=== PATIENT | male | born 1975 | race Caucasian/White ===

== ENCOUNTER 2016-11-14 18:10 | Observation (INO) | payer BC ==
[~2016-11-14] VITALS: Ht 182.9 cm; Wt 91.5 kg
--- NOTE | ~2016-11-14 | ECHO ---
Transthoracic Echocardiography Report (TTE) Demographics Patient Name JAZ ESPOSITO Date of Study 11/15/2016 Patient Number [id number] Visit Number [id number] Date of 1975 Room Number G6219 Accession Number [id number] Gender Male Age 41 year(s) Referring Yaakov Lozano MD Hand Flesher Itzel Tillman RUST, Physician Marni Osborne MD RVT Physician Interpreting [employer] Digital Marketing Officer Physician Supervising Ordering Physician Marni Osborne MD, MD/MLP Nurse Stress E Commerce Architect Conclusions Contractility Score Summary At rest the following contractility abnormalities were noted: Hypokinesis of the Apical cap segment. Contractility of all other segments appeared normal. Summary Normal LV/RV size and systolic function. The estimated left ventricular ejection fraction is 55-60% Mild concentric left ventricular hypertrophy. Diastolic assessment reveals normal relaxation. No significant valvular abnormalities. No evidence of pericardial effusion. Procedure Type of Study TTE procedure:2D Echocardiogram. Procedure Date Date: 11/15/2016 Start: 12:23 PM Study Location: Inpatient Portable Technical Quality: Adequate visualization Indications:TIA. Additional Indications:stroke Appropriate Use Criteria: 9 Patient Status: Routine Rhythm: Within normal limits HR: 70 bpm BP: 134/89 mmHg M-Mode/2D Measurements LV Diastolic Dimension: 4.63 cm LV Systolic Dimension: 3.44 cm LV Septum Diastolic: 1.09 cm LV PW Diastolic: 1.19 cm AO Root Dimension: 2.5 cm Cardiac Output: 5.35 l/min AV Cusp Separation: 2.1 cm RV Diastolic Dimension: 2.17 cm LA volume: 39 ml IVC Inspiration: 0.8 cm LVOT: 2.3 cm RV Base: 3.67 cm LVOT VTI: 18.4 cm RV Mid: 2.36 cm LV Stroke volume: 76.41 ml TAPSE: 2.28 cm TDI-S': 14 cm/s Doppler Measurements AV Peak Velocity: 1.18 m/s MV Peak E-Wave: 0.94 m/s AV Peak Gradient: 5.57 mmHg MV Peak A-Wave: 0.58 m/s AV Mean Gradient: 4 mmHg MV E/A Ratio: 1.62 LVOT Peak Velocity: 0.85 m/s MV P1/2t: 69 msec TR Gradient:20.43 mmHg PV Peak Velocity: 0.92 m/s Estimated RAP:3 mmHg PV Peak Gradient: 3.36 mmHg Estimated RVSP: 23 mmHg Estimated PASP: 23.43 mmHg E' Septal Velocity: 0.16 m/s A' Septal Velocity: 0.11 m/s E' Lateral Velocity: 0.12 m/s A' Lateral Velocity: 0.08 m/s Findings Left Ventricle The estimated left ventricular ejection fraction is 55% Mild concentric left ventricular hypertrophy. Diastolic assessment reveals normal relaxation. Right Ventricle Grossly normal right ventricle structure and function. Left Atrium Grossly normal left atrial size. Right Atrium Grossly normal right atrial size. IVC imaging is consistent with normal RA pressures. Mitral Valve Trivial mitral regurgitation by color Doppler. Aortic Valve Grossly normal aortic valve structure and function. Tricuspid Valve The tricuspid valve is not well visualized. Grossly normal appearing tricuspid valve. Pulmonic Valve Grossly normal pulmonic valve structure and function. Pericardial Effusion No evidence of pericardial effusion. Miscellaneous Visualized portions of the aortic root and ascending aorta appear normal in size. Pleural Effusion No evidence of pleural effusion. Contractility Score LV regional wall motion:(0-Non visualized 1-Normal 2-Hypokinesis 3-Akinesis 4-Dyskinesis 5-Aneurysm) Signature dtt: JOJO LUCIA dtd: 11/15/16 1223 Physician Self Edit
--- NOTE | ~2016-11-14 | HP ---
PATIENT'S NAME: JAZ ESPOSITO [facility] AGE: 41 Y [address] ROOM: G6219 [place], [place] [address] LOCATION: [facility] ADMIT DATE: 11/14/2016 History & Physical DISCHARGE DATE: FAMILY PHYSICIAN: Stephen Nuno MD ATTENDING PHYSICIAN: LEON BOURGEOIS DATE OF SERVICE: CHIEF COMPLAINT: Right eye pain and the right posterior headache as well as right facial numbness and unstable gait. HISTORY OF PRESENT ILLNESS: This is a 41-year-old male who says that yesterday around noontime he felt this pain around the right eye and headache in the right posterior area associated with facial numbness on the right-side and unstable gait as well as feeling hot in the left arm. Every time, he tried to walk he becomes unstable in the gait, but he did not suffer any fall. There is no head trauma. The patient went to [place] for evaluation. Over there, a CT scan of the brain was unremarkable and a carotid duplex ultrasound of the bilateral carotid artery were also unremarkable. The patient was treated for presumed migraine and the headache, did get some relief; however, he is still wobbly and also unstable on the gait. The patient was scheduled to go back to [place] for MRI of the brain on the end of the week to a special facility in [place]. When the patient went home, the patient was still wobbly and unstable on the gait and the patient's sister is a nurse practitioner and the patient was advised to get MRI of the brain. Therefore, the patient went to [facility], where an MRI was performed after the [facility] contacted our on-call neurologist Dr. Flores and MRI of the head was performed and it showed evidence of 4-mm right cerebellar CVA. The patient was transferred here for further care. The patient denies any slurred speech, denies any visual deficit, and denies any facial droop. REVIEW OF SYSTEMS: As mentioned in history of present illness. All other systems reviewed and negative except those mentioned in history of present illness. SOCIAL HISTORY: The patient chews tobacco for a few years, but he denies any cigarette smoking. The patient is an occasional alcohol drinker, but he denies any alcohol abuse or any alcohol withdrawal. He drinks about a few cans of beers on and off. 3-4 days per week. Last drink was 4 days ago. He denies any illegal drugs. PAST SURGICAL HISTORY: PATIENT'S NAME: AJZ ESPOSITO [facility] AGE: 41 Y [address] ROOM: G6219 [place], [place] [address] LOCATION: [facility] ADMIT DATE: 11/14/2016 History & Physical DISCHARGE DATE: FAMILY PHYSICIAN: Stephen Nuno MD ATTENDING PHYSICIAN: LEON BOURGEOIS 1. Status post cervical herniated disk surgery in the past. 2. Status post left shoulder surgery in the past. FAMILY HISTORY: Father had COPD and had a cardiac problem, but he could not remember all the details. and he at age 63 from some kind of heart problem. Mother is healthy. PAST MEDICAL HISTORY: The patient denies any past medical history. ALLERGIES: NO KNOWN DRUG ALLERGIES. HOME MEDICATIONS: None. REVIEW OF SYSTEMS: As mentioned in the history of present illness. All other systems reviewed and negative except those mentioned in history of present illness. PHYSICAL EXAMINATION: VITAL SIGNS: At the time of my dictation, temperature 98, heart rate 80, blood pressure 150/70, respirations 13, and saturation 99% on room air. GENERAL APPEARANCE: Alert and oriented x3, in no acute distress. HEENT: Pupils equally round and reactive to light. Extraocular muscles intact. Nasal turbinates are normal bilaterally. Moist oral mucosa. NECK: No JVD. CARDIOVASCULAR: Regular rate and rhythm. Normal S1, S2. No murmur, no rubs, no gallops. RESPIRATORY: Clear. Chest wall nontender. Nontender to palpation. ABDOMEN: Obese, soft, nontender, nondistended, normal bowel sounds, no hepatosplenomegaly. Bowel sounds present. EXTREMITIES: No edema in upper or lower extremities. SKIN: No ulcer, no rash, no cyanosis. NEUROLOGICAL: Cranial nerves 2 through 12 unremarkable. No facial droop. No slurred speech. No tongue deviation upon protrusion. Sensation mildly decreased on the left upper extremity all the way from the left shoulder to the left hand and this is chronic due to his history of herniated cervical disk surgery in the past. Sensation intact in all 4 extremities. Muscle strength intact in all 4 extremities. Deep tendon reflex +2 at the knees and also in the biceps bilaterally. Pwuu-ca-acgnqz intact. Fgnt-hg-puhm intact. Proprioception and vibration intact. No slurred speech. No muscle weakness. Babinski negative bilaterally. MUSCULOSKELETAL: No joint pain. No muscle pain. Range of motion intact. PATIENT'S NAME: JAZ ESPOSITO [facility] AGE: 41 Y [address] ROOM: [place] [address] LOCATION: [facility] ADMIT DATE: 11/14/2016 History & Physical DISCHARGE DATE: FAMILY PHYSICIAN: Stephen Nuno MD ATTENDING PHYSICIAN: LEON BOURGEOIS LABORATORY DATA: Laboratory data from the outside facility on November 13, 2016 showed sodium 141, potassium 4.1, chloride 103, CO2 26, glucose 113, BUN 14, creatinine 0.9, calcium 9.3, total protein 7.7, albumin 4.0, total bilirubin 0.4, alkaline phosphatase 110, ALT 47, AST 22. White blood cell 9.3, hemoglobin 14.3, hematocrit 39.7, MCV 94.1, MCH 33.9, and platelet 254. IMAGING STUDIES: 1. CT of the brain without contrast performed on November 13, 2016 in [place] was unremarkable. 2. Bilateral carotid ultrasound on November 13, 2016 performed in [place] showed no evidence that there was sclerotic plaque identified within the bilateral carotid arteries. No luminal stenosis on the imaging. 3. MRI of the brain performed today on November 14, 2016 in [facility], the official report was not sent over here, but based on the ER note, it says that it show a 4-mm right cerebellar CVA. 4. EKG performed on November 13, 2016 show normal sinus rhythm, no acute ischemic changes. ASSESSMENT AND PLAN: 1. Regarding his right cerebellar cerebrovascular accident: I will request official written report of the MRI of the brain that was done in [facility] given that the report was not sent over here. The finding was based on the ER report from [facility]. I will also request them to push imaging to PACS. I will check the A1c and also lipid panel in the morning. Intravenous fluids to keep the blood pressure on the higher end given that the stroke happened roughly 24 hours ago; right now, I would like to increase the brain perfusion. We will give normal saline bolus and maintenance. Check vital signs every 2 hours. Intravenous labetalol p.r.n. and intravenous hydralazine p.r.n. if necessary for systolic blood pressure more than 220. Aspirin 81 mg now and then daily and Lipitor 80 mg now and then daily. PT and OT. We will get an MRA magnetic resonance angiography of the brain in the morning. Fall precaution. Bedside dysphagia screen if the patient can pass then we will start a cardiac diet, if he fails, we will put a formal Speech and Swallow evaluation in the morning. I will also get a transthoracic echo in the morning. Further plan depends on clinical course. 2. Deep vein thrombosis prophylaxis: Lovenox subcutaneous daily. Time spent in care on the day of admission 30 minutes including chart review, interviewing the patient, addressing all the questions and concern that the patient had, examining the patient, and going over the plan of care in detail with the patient and the patient's family members and the nurses. Further plans will be made by the hospitalist who would be taking over the care starting at 8 AM on 11/15/16. PATIENT'S NAME: JAZ ESPOSITO [facility] AGE: 41 Y [address] ROOM: [place] [address] LOCATION: [facility] ADMIT DATE: 11/14/2016 History & Physical DISCHARGE DATE: FAMILY PHYSICIAN: Stephen Nuno MD ATTENDING PHYSICIAN: LEON BOURGEOIS LEON BOURGEOIS MD CC/modl /[id number] D: [id number] T: [id number] HISTORY & PHYSICAL
--- NOTE | ~2016-11-14 | CON ---
PATIENT'S NAME: JAZ ESPOSITO [facility] AGE: 41 Y [address] ROOM: G6219 [place], [place] [address] LOCATION: [facility] ADMIT DATE: 11/14/2016 Consultation DISCHARGE DATE: FAMILY PHYSICIAN: Stephen Nuno MD ATTENDING PHYSICIAN: LEON BOURGEOIS DATE OF CONSULTATION: 11/15/2016 REFERRING PHYSICIAN: ABIGAIL TRIPLETT MD The patient was seen in neurologic consultation on 11/15/2016. HISTORY OF PRESENT ILLNESS: This is a 41-year-old male patient who came in late in the evening. Though, I was involved in the transfer of the patient from [facility] to our hospital. The patient initially presented to [facility] in the afternoon of the with a sudden onset of stroke-like symptoms. He was having some difficulty with ambulation with tendency to be wide-based in his gait and falling to the right side. Furthermore, he later admitted that he had some numbness of his right face and also some numbness of his left hemibody. He denied any weakness of the limbs. He denied any double vision. He denied any problems with chewing, swallowing, or dysarthric speech. After being treated at [facility] that he was told that he needed MRI ultimately and ended up at the [facility] where I was called and got involved. There, they did an MRI and showed evidence for an acute stroke that was quite small almost punctate in the region of the midline of the cerebellum, likely involving the PICA distribution of the right side of the brainstem. The stroke was only measuring around 4 mm in size. There were no other strokes seen in the cerebellum or other places in the brain. Over the course of the evening here for transfer on workup, the patient has made a dramatic improvement in his gait. He walks much more fluid and is not having a wide based gait. He does demonstrate very subtle dysmetria on finger-to- nose on the right hand, otherwise, the facial numbness and hemianesthesia of the left side has been completely resolved. The patient has normal speech and in further discussions with the patient as a clue to a possibility of the reason for this stroke, I asked him about any neck injury, he did admit that he had tripped over his dog at home and landed smack down on the front of his head. He did not lose consciousness. He did have some severe headache of the right side of his head along with some severe neck pain in the right posterior aspect of the head the morning prior to the morning of his stroke. This is of one of the reasons why the patient was treated as a migraine when he came into [facility] in the emergency room. Right now, his neck pain is not present, his headache has essentially been resolved. PRIOR MEDICAL HISTORY: No significant prior medical history. He is on no medicines at home. PATIENT'S NAME: JAZ ESPOSITO [facility] AGE: 41 Y [address] ROOM: [place] [address] LOCATION: [facility] ADMIT DATE: 11/14/2016 Consultation DISCHARGE DATE: FAMILY PHYSICIAN: Stephen Nuno MD ATTENDING PHYSICIAN: LEON BOURGEOIS ALLERGIES: NO KNOWN DRUG ALLERGIES. FAMILY HISTORY: Not consistent with a stroke or cardiac disease. SURGICAL HISTORY: He had a cervical neck surgery because of herniated disc. This was at least two years ago. Also had a left shoulder surgery in the past. SOCIAL HISTORY: Other than chewing tobacco, he does not smoke cigarettes. He does not use any illicit drugs. He occasionally drinks a few beers a week, but has not had any alcohol in the last few days prior to coming here. REVIEW OF SYSTEMS: The patient is otherwise healthy. He presented with ataxic gait with tendency to fall to the right hemifacial numbness and left hemibody numbness which is now resolved. This is likely occurred after experiencing a fall and hitting his head. There is strong suspect that the patient had an injury to the PICA, posterior inferior cerebellar artery. The rest of a complete 10-point review of systems is within normal limits. PHYSICAL EXAMINATION: GENERAL: The patient is alert and oriented. NEURO: He does not display any problems with mentation. Speech is clear. There is no slurring. Neck is supple on flexion and extension. There is no focal tenderness of the neck or of the head. Pupils are equal and reactive to light and accommodation. Extraocular muscles are intact. There is normal facial symmetry and currently normal sensation. Power of the upper extremities are full 5/5 in the proximal and distal muscles of the upper and lower extremities. I did not appreciate a pronator drift. On finger to nose, there was perhaps a subtle dysmetria on the right hand, but otherwise no rebound phenomena was seen and no dysdiadochokinesis. There was slight diminished sensation on the left arm, compared to the right at this time. Patient's gait was a bit wide based gait but definitely improved according to the patient. I did not see a tendency for him to fall to one side or two side. Reflexes up all the way were +2 in the biceps, triceps, brachioradialis, patellar, and ankle jerk reflexes. Plantar reflexes are downgoing IMPRESSION: Mr. Esposito is otherwise healthy male patient who after a fall at home, did hit his head. Likely I believe he experienced a small injury to the vertebral PATIENT'S NAME: JAZ ESPOSITO [facility] AGE: 41 Y [address] ROOM: [id number] [place] [id number] LOCATION: [facility] ADMIT DATE: 11/14/2016 Consultation DISCHARGE DATE: FAMILY PHYSICIAN: Stephen Nuno MD ATTENDING PHYSICIAN: LEON BOURGEOIS artery, likely most specifically to the PICA, to the distribution of the midline cerebellum where his stroke is located, goes along with a small PICA infarct. This would also go along with the symptoms that he was currently experiencing; however, there is no evidence on the MRI to support a medullary stroke per se. Though his symptoms clearly do appear to be related to this posterior inferior cerebellar artery distribution stroke that affected the midline cerebellum. From a standpoint of the patient's treatment here after a daily aspirin of 81 mg is recommended, a cholesterol-lowering medication has been started as per poststroke management. Though the indication of long-term beyond 6 months is probably going to have to be reconsidered, probably if this was related to an acute injury to the blood vessel. Nonetheless without we may not find a particular PICA vertebral dissection on the MRA, but the symptoms again do suggest that this was an injury to the blood vessel of either of the vertebral artery in the neck or intracranially. Carotid ultrasounds were performed at the other hospital and they were within normal limits. Since the patient has made a good recovery over the course of the past 48 hours, I do believe that it would be safe for him to go home. I told him that the risk for recurrence of the stroke will probably go back to normal over the course of a few months and probably slightly increased risk if this was an injured vessel over the course of the next 2 weeks or so. I recommended that he avoid any straining of his neck, lifting, and standing very rapidly. Certainly, if he experiences any new neurologic deficits, he should come to the emergency room. The patient to follow up with us for a post stroke evaluation within two weeks at our neurology clinic. MD RALPH MIXON/modl /[id number] d: 11/15/16 1628 t: 11/26/16 1352, CONSULTATION REPORT
--- NOTE | ~2016-11-14 | DS ---
PATIENT'S NAME: JAZ ESPOSITO [facility] AGE: 41 Y [address] ROOM: [facility] [place] [address] LOCATION: [facility] ADMIT DATE: 11/14/2016 Discharge Summary DISCHARGE DATE: 11/16/2016 FAMILY PHYSICIAN: Stephen Nuno MD ATTENDING PHYSICIAN: Tha Grider PRIMARY DIAGNOSES: 1. Right cerebellar ischemic cerebrovascular accident. 2. Ataxia. 3. Chewing tobacco use. 4. Dyslipidemia. 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 No flow at the right vertebral artery. HISTORY OF PRESENTING ILLNESS/REASON FOR ADMISSION: Please refer to the H and P dictated on 11/14/[address] Grider. HOSPITAL COURSE: The patient was admitted to the hospital as noted above after an initial evaluation at 2 outlying facilities. He initially presented to [facility] and was treated conservatively, and eventually, [facility] where an MRI scan showed the presence of a right cerebellar ischemic stroke. Neurology was consulted, and he was transferred here for definitive evaluation and management on the stroke unit. He was hemodynamically stable at the outset. Physical deficits were primarily ataxia. Neurology did formally assess the patient here as well. He was placed on aspirin and Lipitor therapy. He received some IV fluids, and blood pressures were managed with IV hydralazine. Eventually, his hypertensive trends improved and he became normotensive. He received physical therapy and occupational therapy evaluations. Neurology also followed the patient over the course of his hospital stay here. Lipids revealed some elevated lipids. Echocardiography was obtained, and the findings were normal. By the end of the third day of his hospital stay, it was felt he would be stable enough for discharge to home on an adjusted medication regimen plans for outpatient followup and continued outpatient restorative care. He was recommended to stop using tobacco. He was in a contemplative phase but refused any nicotine supplementation. PATIENT'S NAME: JAZ ESPOSITO [facility] AGE: 41 Y [address] ROOM: [place] [address] LOCATION: [facility] ADMIT DATE: 11/14/2016 Discharge Summary DISCHARGE DATE: 11/16/2016 FAMILY PHYSICIAN: Stephen Nuno MD ATTENDING PHYSICIAN: Tha Grider DISCHARGE INSTRUCTIONS: DIET: Regular as tolerated. ACTIVITY: As tolerated. MEDICATIONS: 1. Lipitor 80 mg p.o. daily. 2. Aspirin 81 mg p.o. daily. FOLLOWUP: He will follow up with Dr. Setphen Nuno in 2 to 3 days. He will follow up with Neurology on an as-needed basis. CONDITION ON DISCHARGE: Good. Total time spent on discharge process 35 minutes. DMITRI J MD ALEXANDRO HEBERT/jacinda /[id number] d: 11/17/16 0343 t: 11/18/16 1627, DISCHARGE SUMMARY
[2016-11-15 05:01] LABS: HEMATOCRIT 36.5 % (37.0-53.0); HEMOGLOBIN 12.5 g/dL (12.0-17.0); MCH 33.3 pg (27.0-34.0); MCHC 34.2 gm/dL (32.0-36.5); MCV 97.3 fl (83.0-98.0); MPV 9.3 fl (9.4-12.4); RBC 3.75 M/uL (4.00-6.00); RDW-CV 12.7 % (11.9-14.6); WBC 11.6 K/uL (4.0-11.0)
[2016-11-15 05:14] LABS: ANION GAP 10.9 (10.0-19.0); BLOOD UREA NITROGEN 14 mg/dL (6-24); CALCIUM 7.8 mg/dL (8.5-10.5); CHLORIDE 110 mMol/L (96-110); CO2 27 mMol/L (22-32); CREATININE 0.8 mg/dL (0.6-1.3); ESTIMATED GFR (MDRD EQUATION) > 60; POTASSIUM 3.9 mMol/L (3.7-5.1); SODIUM 144 mMol/L (135-145)
[2016-11-15 17:14] LABS: CPK 56 IU/L (35-332)
[2016-11-16 04:56] LABS: BASOPHIL % 0.1 %; EOSINOPHIL # 0.1 K/uL (0.0-0.5); EOSINOPHIL % 1.7 %; HEMATOCRIT 38.1 % (37.0-53.0); HEMOGLOBIN 13.2 g/dL (12.0-17.0); IMMATURE GRANULOCYTE % 0.3 %; LYMPHOCYTE # 2.5 K/uL (0.8-4.0); LYMPHOCYTE % 35.2 %; MCH 33.5 pg (27.0-34.0); MCHC 34.6 gm/dL (32.0-36.5); MCV 96.7 fl (83.0-98.0); MONOCYTE # 0.5 K/uL (0.0-1.0); MONOCYTE % 7.2 %; MPV 9.3 fl (9.4-12.4); NEUTROPHIL # (ANC) 3.9 K/uL (1.4-9.0); NEUTROPHIL % 55.5 %; NRBC % 0 /100WBC (0-0.00); PLATELET COUNT 187 K/uL (150-450); RBC 3.94 M/uL (4.00-6.00); RDW-CV 12.3 % (11.9-14.6)
[2016-11-16 05:16] LABS: ALBUMIN 3.2 gm/dL (3.5-5.0); ALK PHOS 81 IU/L (33-138); ALT 45 IU/L (12-78); ANION GAP 9.9 (10.0-19.0); AST 21 IU/L (10-40); BLOOD UREA NITROGEN 15 mg/dL (6-24); CALCIUM 8.2 mg/dL (8.5-10.5); CHLORIDE 106 mMol/L (96-110); CO2 29 mMol/L (22-32); CREATININE 0.8 mg/dL (0.6-1.3); ESTIMATED GFR (MDRD EQUATION) > 60; POTASSIUM 3.9 mMol/L (3.7-5.1); SODIUM 141 mMol/L (135-145); TOTAL BILIRUBIN 0.3 mg/dL (0.0-1.5); TOTAL PROTEIN 6.4 g/dL (6.0-8.4)
[2016-11-16] MEDS ORDERED: ASPIRIN (CHILDR81 MG PO (05:31)
[2016-11-16] MEDS ORDERED: LIPITOR80 MG PO (05:32)
== END 2016-11-16 08:34 | disposition disaster alternative care site (69) ==
LOC: GNTU 18:10 → GPCU 19:05 → GNTU 19:11
PROVIDERS: Family Medicine; ADMIT Internal Medicine
DX: I63.8 Other cerebral infarction (principal); R27.0 Ataxia, unspecified; E78.5 Hyperlipidemia, unspecified; F17.220 Nicotine dependence, chewing tobacco, uncomplicated; Z79.82 Long term (current) use of aspirin; Z79.899 Other long term (current) drug therapy; Z98.890 Other specified postprocedural states
CPT/HCPCS: G0378; J1650; J7030